=== PATIENT | male | born 1995 | race Caucasian/White ===

== ENCOUNTER 2018-04-18 21:07 | Emergency (ER) | payer BC ==
[2018-04-18] MEDS ORDERED: NS 1,000 ML IV ONE ×2 (21:24)
[2018-04-18 21:34] LABS: PLATELET COUNT 317 10^3/uL (150-400)
--- NOTE | 2018-04-18 21:48 | EDPHY ---
H & P Time Seen by Provider: 04/18/18 21:24 HPI/ROS: Chief complaint. Syncope HPI. Patient is 22-year-old male presents emergency department after syncopal episode. He was celebrating 22st birthday with friends. Eating quite a bit of food. Drink 1 Sona. Surge of feels somewhat nauseated got up to go to the bathroom got lightheaded and felt like his vision was going black. He fell and struck his right eyebrow. Now feels well and back to normal. Denies neck or back pain, headache, change in vision, chest discomfort or trouble breathing , abdominal pain. No previous syncopal episode ROS 10 systems were reviewed and negative with the exception of the elements mentioned in the history of present illness Past Medical/Surgical History: Depression Social History: Single, daily smoker, recent alcohol Smoking Status: Current some day smoker Physical Exam: General Appearance: Alert well-developed male mild distress vital signs are stable Eyes: Pupils equal and round no pallor or injection. ENT, no hemotympanum or Ny sign. No oral pharyngeal or dental trauma Respiratory: There are no retractions, lungs are clear to auscultation. Cardiovascular: Regular rate and rhythm. Gastrointestinal: Abdomen is soft and nontender, no masses, bowel sounds normal. Neurological: Awake and alert, sensory and motor exams grossly normal. Skin: 1 cm laceration right eyebrow Musculoskeletal: No C, T, L-spine tenderness Extremities symmetrical, full range of motion. Psychiatric: Patient is oriented X 3, there is no agitation. Constitutional: Initial Vital Signs Temperature (C) 36.6 C 04/18/18 21:00 Heart Rate 70 04/18/18 21:00 Respiratory Rate 18 04/18/18 21:00 Blood Pressure 105/87 H 04/18/18 21:00 O2 Sat (%) 97 04/18/18 21:00 O2 Delivery Mode Room Air Allergies/Adverse Reactions: No Known Allergies Allergy (Unverified 04/18/18 21:22) Home Medications: Medication Instructions Recorded NK [No Known Home Meds] 04/18/18 Medical Decision Making - Diagnostics EKG Interpretation: EKG interpreted by me shows normal sinus rhythm with normal interval and axis. QRS is normal there is no significant ST elevation or depression. No arrhythmia. The rate is 66 Procedures: Procedure: Laceration repair. Verbal consent was obtained from the patient. The 1 cm laceration on the right eyebrow was anesthetized in the usual fashion. The wound was irrigated, draped and explored to its base with a gloved finger. There were no deep structures involved. No tendon injury was identified. The wound was repaired with four 6- 0 prolene sutures. The wound repair was simple. The procedure was performed by myself. ED Course/Re-evaluation: Serial evaluations patient remained stable. He is given 2 L of saline in the department Patient and I discussed laboratory an EKG evaluation. We discussed treatment plan including criteria for return importance of follow-up and further evaluation. He expresses understanding agreement Differential Diagnosis: Syncope likely due to dehydration and volume depletion. Compound with small amount alcohol tonight. No evidence for intracranial injury cervical spine injury. No evidence for acute coronary syndrome - Data Points Laboratory Results: Laboratory Results 04/18/18 21:00 04/18/18 21:00 04/18/18 04/18/18 04/18/18 21:35 21:00 21:00 WBC 16.91 10^3/uL H 10^3/uL (3.80-9.50) RBC 5.97 10^6/uL 10^6/uL (4.40-6.38) Hgb 18.3 g/dL H g/dL (13.7-17.5) Hct 52.1 % H % (40.0-51.0) MCV 87.3 fL fL (81.5-99.8) MCH 30.7 pg pg (27.9-34.1) MCHC 35.1 g/dL g/dL (32.4-36.7) RDW 12.3 % % (11.5-15.2) Plt Count 317 10^3/uL 10^3/uL (150-400) MPV 11.0 fL fL (8.7-11.7) Neut % (Auto) 58.3 % % (39.3-74.2) Lymph % (Auto) 33.3 % % (15.0-45.0) [place] % (Auto) 5.4 % % (4.5-13.0) Eos % (Auto) 2.2 % % (0.6-7.6) Baso % (Auto) 0.5 % % (0.3-1.7) Nucleat RBC Rel Count 0.0 % % (0.0-0.2) Absolute Neuts (auto) 9.86 10^3/uL H 10^3/uL (1.70-6.50) Absolute Lymphs (auto) 5.63 10^3/uL H 10^3/uL (1.00-3.00) Absolute Monos (auto) 0.91 10^3/uL H 10^3/uL (0.30-0.80) Absolute Eos (auto) 0.37 10^3/uL 10^3/uL (0.03-0.40) Absolute Basos (auto) 0.08 10^3/uL 10^3/uL (0.02-0.10) Absolute Nucleated RBC 0.00 10^3/uL 10^3/uL (0-0.01) Immature Gran % 0.3 % % (0.0-1.1) Immature Gran # 0.05 10^3/uL 10^3/uL (0.00-0.10) RBC/WBC/PLT Morphology TNP Platelet Estimate TNP Sodium 141 mEq/L mEq/L (135-145) Potassium 3.5 mEq/L mEq/L (3.3-5.0) Chloride 98 mEq/L mEq/L (97-110) Carbon Dioxide 27 mEq/l mEq/l (22-31) Anion Gap 16 mEq/L H mEq/L (6-14) BUN 12 mg/dL mg/dL (7-23) Creatinine 1.1 mg/dL mg/dL (0.7-1.3) Estimated GFR > 60 Glucose 77 mg/dL mg/dL (70-100) Calcium 10.6 mg/dL H mg/dL (8.5-10.4) POC Troponin I 0.00 ng/mL ng/mL (0.00-0.08) Ethyl Alcohol < 10 mg/dL mg/dL (0-10) Medications Given: Discontinued Medications Sodium Chloride (Ns) 1,000 mls @ 0 mls/hr IV EDNOW ONE; Wide Open PRN Reason: Protocol Stop: 04/18/18 21:25 Last Admin: 04/18/18 21:34 Dose: 1,000 mls Point of Care Test Results: Chemistry 04/18/18 21:35 POC Troponin I 0.00 ng/mL ng/mL (0.00-0.08) Departure - Departure Disposition: Home, Routine, Self-Care Clinical Impression: Syncope Qualifiers: Syncope type: unspecified Qualified Code(s): R55 - Syncope and collapse Eyebrow laceration Qualifiers: Encounter type: initial encounter Laterality: right Qualified Code(s): S01.111A - Laceration without foreign body of right eyelid and periocular area, initial encounter Condition: Good Instructions: Care For Your Stitches (ED) Additional Instructions: Ice to sore area forehead tonight. You may shower with your stitches in Return for signs of infection or worsening headache Stitches out 5 days Referrals: Patient,NotPresent [Primary Care Provider] - As per Instructions
--- NOTE | 2018-04-18 22:48 | CPEKG ---
Test Reason : OPEN Blood Pressure : / mmHG Vent. Rate : 066 BPM Atrial Rate : 066 BPM P-R Int : 204 ms QRS Dur : 084 ms QT Int : 384 ms P-R-T Axes : 008 078 036 degrees QTc Int : 403 ms Sinus rhythm Borderline prolonged CT interval Confirmed by Davis Messina ([id number]) on 04/18/2018 10:47:55 PM Referred By: Confirmed By:Davis Messina
[2018-04-18 23:04] VITALS: BP 122/68
== END 2018-04-18 23:04 | disposition home or self-care (01) ==
PROC: 08QNXZZ Repair Right Upper Eyelid, External Approach (ICD-10-PCS; principal; 2018-04-18)
DX: R55 Syncope and collapse (principal); S01.111A Laceration without foreign body of right eyelid and periocular area, initial encounter; E86.9 Volume depletion, unspecified; F17.200 Nicotine dependence, unspecified, uncomplicated; W19.XXXA Unspecified fall, initial encounter; Y92.099 Unspecified place in other non-institutional residence as the place of occurrence of the external cause; Y99.9 Unspecified external cause status
CPT/HCPCS: 84484-PO; G0480

== ENCOUNTER 2018-05-17 14:04 | Emergency (ER) | payer BC ==
[2018-05-17 14:36] LABS: PLATELET COUNT 206 10^3/uL (150-400)
--- NOTE | 2018-05-17 16:06 | EDPHY ---
H & P Time Seen by Provider: 05/17/18 14:05 HPI/ROS: CHIEF COMPLAINT: Suicidal ideation, depressed, M1 hold HISTORY OF PRESENT ILLNESS: This is a 22-year-old male presents with the please after being placed on an M1 hold. Patient has been depressed and expressing suicidal ideation for the last 1-2 days. Last night he locked himself in a room and had a handgun in the room. There is reports from the girlfriend that he may have held a gun to his head. 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 He became quite agitated. Patient's counselor, who has seen in for depression and anxiety, became concerned. Patient told his girlfriend that they would find his body on [place]. Counselor girlfriend found the patient on [place] in the police were contacted. 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 He denies suicidal ideation at this time. REVIEW OF SYSTEMS: A comprehensive 10 system review of systems was reviewed and is otherwise negative aside from elements mentioned in the history of present illness and medical decision making. PAST MEDICAL HISTORY: Depression. SOCIAL HISTORY: [employer] Student, football player. VITAL SIGNS Reviewed by me. GENERAL: Well-developed, well-nourished, resting comfortably in no respiratory distress. HEENT: Atraumatic. Eyes: No icterus, no injection. Mouth: moist mucous membranes. No erythema or lesions. Neck: supple with no adenopathy. LUNGS: Clear to auscultation bilaterally, no wheezes, rhonchi or rales. CARDIAC: Regular rate and rhythm, no rubs, murmurs or gallops. ABDOMEN: Soft, nontender, nondistended, bowel sounds normal. BACK: No CVA tenderness. EXTREMITIES: No trauma. No edema. Range of motion is normal throughout. NEURO: Alert and oriented, grossly nonfocal. SKIN: Warm and dry, no rash. PSYCHIATRIC: Normal mentation, no agitation. Smoking Status: Current some day smoker Constitutional: Initial Vital Signs Temperature (C) 36.8 C 05/17/18 14:24 Heart Rate 55 L 05/17/18 14:24 Respiratory Rate 16 05/17/18 14:24 Blood Pressure 138/84 H 05/17/18 14:24 O2 Sat (%) 99 05/17/18 14:24 O2 Delivery Mode Room Air Allergies/Adverse Reactions: azithromycin Allergy (Verified 05/17/18 14:24) Penicillins Allergy (Verified 05/17/18 14:24) Home Medications: Medication Instructions Recorded NK [No Known Home Meds] 04/18/18 Medical Decision Making ED Course/Re-evaluation: 22-year-old male on a M1 hold placed by the police department after expressing suicidal ideation. Patient is cooperative with the exam. He admits a history of depression and anxiety for which he takes no medications. Patient was medically cleared with labs and urine. Patient was evaluated by mental health counselor. Please see their notations. The patient's psychologist from the [facility] was present in the emergency department and collateral information was obtained. Patient is felt to be safe for discharge with close follow-up. M1 hold was vacated by Dr. Velasco. Differential Diagnosis: Differential diagnosis of the patient's presenting complaint was considered including but not limited to functional and major depression, situational depression, hypothyroidism, medication side effect, drugs and alcohol abuse, suicidal ideation. - Data Points Laboratory Results: Laboratory Results 05/17/18 14:30 05/17/18 14:30 05/17/18 05/17/18 05/17/18 14:30 14:30 14:30 WBC 11.10 10^3/uL H 10^3/uL (3.80-9.50) RBC 5.51 10^6/uL 10^6/uL (4.40-6.38) Hgb 17.3 g/dL g/dL (13.7-17.5) Hct 49.6 % % (40.0-51.0) MCV 90.0 fL fL (81.5-99.8) MCH 31.4 pg pg (27.9-34.1) MCHC 34.9 g/dL g/dL (32.4-36.7) RDW 12.5 % % (11.5-15.2) Plt Count 206 10^3/uL 10^3/uL (150-400) MPV 10.4 fL fL (8.7-11.7) Neut % (Auto) 77.5 % H % (39.3-74.2) Lymph % (Auto) 14.9 % L % (15.0-45.0) [place] % (Auto) 5.4 % % (4.5-13.0) Eos % (Auto) 1.4 % % (0.6-7.6) Baso % (Auto) 0.4 % % (0.3-1.7) Nucleat RBC Rel Count 0.0 % % (0.0-0.2) Absolute Neuts (auto) 8.62 10^3/uL H 10^3/uL (1.70-6.50) Absolute Lymphs (auto) 1.65 10^3/uL 10^3/uL (1.00-3.00) Absolute Monos (auto) 0.60 10^3/uL 10^3/uL (0.30-0.80) Absolute Eos (auto) 0.15 10^3/uL 10^3/uL (0.03-0.40) Absolute Basos (auto) 0.04 10^3/uL 10^3/uL (0.02-0.10) Absolute Nucleated RBC 0.00 10^3/uL 10^3/uL (0-0.01) Immature Gran % 0.4 % % (0.0-1.1) Immature Gran # 0.04 10^3/uL 10^3/uL (0.00-0.10) Sodium 142 mEq/L mEq/L (135-145) Potassium 4.3 mEq/L mEq/L (3.5-5.2) Chloride 102 mEq/L mEq/L (97-110) Carbon Dioxide 30 mEq/l mEq/l (22-31) Anion Gap 10 mEq/L mEq/L (6-14) BUN 15 mg/dL mg/dL (7-23) Creatinine 1.0 mg/dL mg/dL (0.7-1.3) Estimated GFR > 60 Glucose 97 mg/dL mg/dL (70-100) Calcium 10.2 mg/dL mg/dL (8.5-10.4) Urine Opiates Screen NEGATIVE (NEGATIVE) Urine Barbiturates NEGATIVE (NEGATIVE) Ur Phencyclidine Scrn NEGATIVE (NEGATIVE) Ur Amphetamine Screen NEGATIVE (NEGATIVE) U Benzodiazepines Scrn NEGATIVE (NEGATIVE) Urine Cocaine Screen NEGATIVE (NEGATIVE) U Marijuana (THC) Screen NEGATIVE (NEGATIVE) Ethyl Alcohol < 10 mg/dL mg/dL (0-10) Departure - Departure Disposition: Home, Routine, Self-Care Clinical Impression: Suicidal ideation Depression Qualifiers: Depression Type: unspecified Qualified Code(s): F32.9 - Major depressive disorder, single episode, unspecified Condition: Good Instructions: Depression (ED), Suicide Prevention (ED) Additional Instructions: Follow-up as directed. Please return to the emergency department or seek care urgently if symptoms of increasing depression, anxiety, or feelings of suicidal ideation developed. Referrals: NONE *PRIMARY CARE P,. [Primary Care Provider] - As per Instructions
[2018-05-17 16:40] VITALS: BP 130/70
--- NOTE | 2018-05-17 17:33 | ASMTTCLDSP ---
TLC Discharge Disposition Disposition: Answers: Discharge Disposition Notes: Notes: Pt was discharged with his therapist Joaquim Lopez. Pt was given crisis numbers. Pt will follow up with a therapy appt tomorrow with his therapist. Discharge Concerns/Recommendations: Notes: In consultation with [facility] ED physician, Sabrina Riddle MD, and on-call psychiatrist, Monty Velasco MD, both concurred that pt does not appear to meet 27-65 criteria requiring psychiatric hospitalization as pt does not appear to be an imminent risk of harm to self/others/gravely disabled due to a mental illness condition. Date and time M1 hold 05/17/2018 04:00 PM vacated (time format is hh:mm): Date Signed: 05/17/2018 05:32 PM Electronically Signed By:Yazmin Lynn
--- NOTE | 2018-05-17 17:49 | ASMTTLCEVL ---
[facility] Evaluation - Basic Information Evaluation Start Date and 05/17/2018 01:45 PM Time Hospital Status Answers: M1 Hold 72-hr M1 Hold Start Date 05/17/2018 12:43 PM and Time Patient statement Notes: Suicidal thoughts. Narrative Notes: Pt is a 22 year old male who was brought to [facility] Ed by [employer] on an M1 hold. 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 Hen today, pt found out they were going to pull his scholarship. Pt reportedly, left without his cell phone or telling anyone where he was going but told his girlfriend Kiara, You better call police because they are gonna find a body at [place]. According to Kiara, pt.s girlfriend, pt has been making suicidal statements and had searched ways to kill self this morning. Pt stated he was feeling suicidal earlier this morning but is denying SI now. Pts therapist Joaquim is at bedside and was present during the evaluation. Pt stated he has a poor relationship with his parents and he attributes the argument with his dad and now financial stressors to the suicidal ideation. Pt stated he has had suicidal thoughts for the past 6 months but stated, They are more pronounced now and this is the first time I actually considered it. Per the M1, pt had locked himself in the roomm with his gun but pt denied this happened. Pt stated he never had the gun in his hands and the police did confiscate it from him.[employer] Officer confirmed they took pt's rifle. 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 Pt stated he felt he was doing better, less depression until the conversation with his father last night. Pt stated it was the accumulation of events that made him make suicidal statements. Pt is denying SI now. Pts therapist stated he feels pt can be safe if discharged, as he has a phone appt with pt tomorrow and will see him in person the day after. Diagnosis History Notes: Pt has been dx with depression and anxiety Prior suicide attempts Notes: Pt denied any prior suicide attempts. Prior hospitalizations Notes: None reported. Treatment Responses Notes: N/A History of violence Notes: Pt denied any Hx of violence of [place]. Therapist: Joaquim Miller Psychiatrist: None Medications (name, dosage, route, freq uency) Notes: None reported Allergies/Reaction Notes: Pt stated he believes he is allergic to the antibiotic z pack. Sleep Notes: Pt and therapist report his sleep has improved since he has stopped playing football. 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 Medical/Surgical history Notes: Pt reports a hx of multiple concussions with the most recent 1 month ago. Pt stated he did have LOC and was treated here at [facility]. Substance use history (frequency, intensity, his tory, duration) Notes: Pt stated he drinks alcohol approx. 1x a week and he smokes marijuana approx. every other day. Pt denied any other drug use. Pts bal was .0. Utox was negative for all substances. Family composition Notes: Pt stated his parents live in [place]. Pt reports not having any relationship with his mother and having conflict with his father. Need for family Answers: No participation in patient's care Family psychiatric/substance abuse history Notes: None reported. Developmental history Notes: Pt grew up in [place]. Pt denied ADD/ADHD. Pt reports he does not speak to his mother and stated, Shell just kick you when you are own. Abuse concerns Answers: None Marital status/children Notes: Unmarried, no children. Pt has a girlfriend and they have been together for approx. 7 months. Living situation Notes: Pt lives in [place] and will be getting a roommate in June. Sexual history/orientation Notes: Pt identifies as heterosexual. Peer support/family strengths Notes: Pt stated he has good friends from the football team. His closest friend Leroy is a good support for him. Education level/history Notes: Pt is a senior at [employer] studying Operations Management. Work history Notes: Pt stated he is going to need to get a job. Notes: None reported. Legal Notes: Pt stated he got fined for possession of a fake ID 3 years ago. Baptism/Spiritual Notes: None that would interfere with tx. Leisure Notes: Unable to obtain. Collateral Notes: [employer] Therapist Joaquim. Patient's strengths Answers: Athletic (Please select at least TWO strengths): Funny/Using Humor Insightful Intelligent Responsible/Dependable TLC Evaluation - Mental Status Exam Appearance: Answers: Appropriate Eye Contact: Answers: Good/Direct Mood: Answers: Euthymic Affect: Answers: Appropriate Calm Tearful Behavior: Answers: Cooperative Speech: Answers: Relevant Logical Clear Coherent Thought Process: Answers: Organized Oriented Alert Intact Insight: Answers: Good Judgement: Answers: Fair Depression Answers: Sad Mood Signs/Symptoms: Hallucinations: Answers: None Pt reported to have Answers: No suicidal/self-injuring ideation/behavior? Pt reported to be making Answers: Yes suicidal/self-injuring threats? Pt reported to have Answers: No aggression/assault ideation/behavior? Pt reported to be making Answers: No aggression/assault threats? Ideation/behavior is Answers: No chronic? Patient has a specific Answers: No plan? Pt has access to means to Answers: No execute the plan? Ideation involves Answers: No serious/lethal intent? Ideation has Answers: No delusional/hallucinatory content? History of Answers: No suicidal/self-injuring ideation, behavior, or threats? History of Answers: No aggressive/assaultive ideation, behavior, or threats? History of serious Answers: No physical harm to self/others while in treatment setting? TLC Evaluation - Suicide/Homicide Risk Suicide Risk Factors: Answers: < 20 or > 40 Years of Age School Difficulties Homicide/violence risk Answers: None factors: Current Suicidal Answers: No Ideation? Current Suicidal Ideation Answers: Yes in the Past 48 Hours? Current Suicidal Ideation Answers: Yes in the Past Month? Current Suicidal Answers: Yes Ideation, Worst Ever? Suicide Internal Answers: Absence of Psychosis Protective Factors: Suicide External Answers: Social Support Protective Factors: Ranking of patient's Answers: Low suicidal risk: Ranking of patient's Answers: Low homicidal risk: TLC Evaluation - Wrap-up BDI Total Score: 15 BDI Question #2 Score: 1 BDI Question #9 Score: 1 BSS Total Score: 0 AXIS I Diagnosis (include DSM-V and ICD-10 codes), must also be entered in [place], which is the source of truth. Notes: Major Depressive Disorder, recurrent, moderate 296.32 (F33.1) In consultation with [facility] ED physician, Sabrina Riddle MD, and on-call psychiatrist, Monty Velasco MD, both concurred that pt does not appear to meet 27-65 criteria requiring psychiatric hospitalization as pt does not appear to be an imminent risk of harm to self/others/gravely disabled due to a mental illness condition. Evaluation End Date and 05/17/2018 05:40 PM Time (HH:MM): Date Signed: 05/17/2018 05:49 PM Electronically Signed By:Yazmin Lynn
== END 2018-05-17 16:40 | disposition home or self-care (01) ==
PROC: GZ11ZZZ Psychological Tests, Personality and Behavioral (ICD-10-PCS; principal; 2018-05-17)
DX: R45.851 Suicidal ideations (principal); F32.9 Major depressive disorder, single episode, unspecified
CPT/HCPCS: 80305; G0480